=== PATIENT | male | born 1930 | race Two or more races ===

== ENCOUNTER 2018-01-07 15:44 | Emergency (ER) | payer OTHER ==
[~2018-01-07] VITALS: Ht 172.7 cm; Wt 72.6 kg
[2018-01-07] MEDS ORDERED: SODIUM BICARBONATE 8.4% INJ 50ML SYRINGE ONE (15:50)
[2018-01-07] MEDS ORDERED: EPINEPHrine HCL 1 MG/10 ML SYRG ONE ×2 (15:53→15:58)
== END 2018-01-07 17:17 | disposition expired ==
LOC: ER 15:44
DX: I46.9 Cardiac arrest, cause unspecified (principal); I10 Essential (primary) hypertension; E78.5 Hyperlipidemia, unspecified
CPT/HCPCS: 31500; 92950; 99285; J0171